=== PATIENT | female | born 1935 | race Native Hawaiian/Other Pacific Islander ===

== ENCOUNTER 2017-05-12 14:37 | Outpatient (CLI) | payer OTHER | END 2017-05-12 15:45 | disposition home or self-care (01) | LOC: US 14:37 | DX: M79.604 Pain in right leg (principal); R60.0 Localized edema ==

== ENCOUNTER 2020-09-06 12:35 | Outpatient (CLI) | payer OTHER | END 2020-09-06 21:36 | disposition home or self-care (01) | LOC: INF 12:35 | PROVIDERS: ATTEND Internal Medicine Endocrinology, Diabetes & Metabolism | DX: Z23 Encounter for immunization (principal) | CPT/HCPCS: 96372 ==

== ENCOUNTER 2020-10-02 10:21 | Outpatient (CLI) | payer OTHER | END 2020-10-02 23:02 | disposition home or self-care (01) | LOC: INF 10:21 | PROVIDERS: ATTEND Internal Medicine Endocrinology, Diabetes & Metabolism | DX: Z23 Encounter for immunization (principal) | CPT/HCPCS: 96372 ==